=== PATIENT | female | born 1945 | race Caucasian/White ===

== ENCOUNTER 2016-10-03 15:06 | Outpatient (CLI) | payer MEDICARE, OTHER ==
--- NOTE | 2016-10-03 16:34 | XRAY Report ---
TWO VIEW CHEST: 10/03/2016 CLINICAL INDICATION: Hemoptysis. FINDINGS: Frontal and lateral views of the chest demonstrate a normal cardiac silhouette. The lungs are hyperinflated, compatible with COPD. No focal consolidation, effusion, or pneumothorax is present . IMPRESSION: HYPERINFLATION, COMPATIBLE WITH COPD. NO EVIDENT ETIOLOGY FOR PATIENT'S HEMOPTYSIS. JOB #: [id number] EXT JOB #:[id number]
== END 2016-10-03 15:07 | disposition home or self-care (01) ==
LOC: DI 15:06
PROVIDERS: ATTEND Family Medicine
DX: R91.8 Other nonspecific abnormal finding of lung field (principal)
CPT/HCPCS: 71020

== ENCOUNTER 2017-07-08 11:27 | Outpatient (CLI) | payer MEDICARE, OTHER ==
[2017-07-08 18:09] LABS: THYROID STIMULATING HORMONE 1.24 uIU/mL (0.34-5.60)
[2017-07-08 18:11] LABS: FREE T4 (FREE THYROXINE) 1.02 ng/dL (0.58-1.64)
== END 2017-07-08 11:28 | disposition home or self-care (01) ==
LOC: LAB.F 11:27
PROVIDERS: ATTEND Internal Medicine
DX: E03.9 Hypothyroidism, unspecified (principal)
CPT/HCPCS: 36415; 84439; 84443